=== PATIENT | female | born 1975 | race Caucasian/White ===

== ENCOUNTER → 2017-02-16 | Outpatient (CLI) | payer BC ==
[~2017-02-16] MED LIST: DAYPRO600 M1 PO; FIORICET 325 MG1 TAB PO; FLEXERIL10 MG PO; HYDROCODONE BIT1 T11 PO; HYDRODIURIL25 MG PO; LASIX40 MG PO; LISINOPRIL20 MG PO; LOPRESSOR100 MG PO; NORCO 5-325 TA1 EACH PO; PREDNICOT20 MG PO; Senokot1 TAB PO; TORADOL10 MG PO; VIBRAMYCIN100 MG PO
== END | disposition home or self-care (01) ==
LOC: CARD 03:25
DX: I10 Essential (primary) hypertension (principal); R61 Generalized hyperhidrosis; R60.9 Edema, unspecified; I34.0 Nonrheumatic mitral (valve) insufficiency; I31.3 Pericardial effusion (noninflammatory)

== ENCOUNTER 2019-05-10 02:06 | Emergency (ER) | payer OTHER ==
[~2019-05-10] VITALS: Ht 152.4 cm; Wt 79.4 kg
[2019-05-10] MEDS ORDERED: KEFLEX500 M1 PO (02:40)
[2019-05-10] MEDS ORDERED: CLINDAMYCIN HC300 MG PO (02:40)
== END 2019-05-10 02:42 | disposition home or self-care (01) ==
LOC: ED 02:06
DX: L02.01 Cutaneous abscess of face (principal); I10 Essential (primary) hypertension; G43.909 Migraine, unspecified, not intractable, without status migrainosus; E66.9 Obesity, unspecified; Z88.5 Allergy status to narcotic agent; Z91.041 Radiographic dye allergy status; Z88.8 Allergy status to other drugs, medicaments and biological substances; Z88.6 Allergy status to analgesic agent; Z79.899 Other long term (current) drug therapy; Z68.30 Body mass index [BMI] 30.0-30.9, adult; Z90.710 Acquired absence of both cervix and uterus